=== PATIENT | male | born 1960 | race Caucasian/White ===

== ENCOUNTER → 2024-06-09 07:18 | Outpatient (REF) | payer MEDICARE, OTHER, SELFPAY | LOC: HWRAD 07:18 | PROVIDERS: ATTENDING PHYSICIAN Family Medicine | DX: R79.89 Other specified abnormal findings of blood chemistry (principal) | CPT/HCPCS: 76700 ==

== ENCOUNTER 2024-12-22 09:47 | Outpatient (RCR) | payer MEDICARE, OTHER, SELFPAY | END 2024-12-22 23:59 | disposition home or self-care (01) | LOC: RPT 09:47 | PROVIDERS: ATTENDING PHYSICIAN Physician Assistant; FAMILY PHYSICIAN Family Medicine | DX: M19.012 Primary osteoarthritis, left shoulder (principal); Z73.6 Limitation of activities due to disability | CPT/HCPCS: 97010; 97110; 97140; 97162 ==

== ENCOUNTER 2025-01-12 09:43 | Outpatient (RCR) | payer MEDICARE, OTHER, SELFPAY | END 2025-01-12 13:13 | disposition home or self-care (01) | LOC: RPT 09:43 | PROVIDERS: ATTENDING PHYSICIAN Physician Assistant; FAMILY PHYSICIAN Family Medicine | DX: M19.012 Primary osteoarthritis, left shoulder (principal); Z73.6 Limitation of activities due to disability | CPT/HCPCS: 97010; 97110; 97140 ==

== ENCOUNTER → 2025-01-21 08:43 | Outpatient (REF) | payer MEDICARE, OTHER, SELFPAY | LOC: RAD 08:43 | PROVIDERS: ATTENDING PHYSICIAN Nurse Practitioner; FAMILY PHYSICIAN Family Medicine | DX: M54.32 Sciatica, left side (principal) | CPT/HCPCS: 72110 ==

== ENCOUNTER 2025-02-21 12:49 | Outpatient (RCR) | payer MEDICARE, OTHER, SELFPAY | END 2025-02-21 23:59 | disposition home or self-care (01) | LOC: RPT 12:49 | PROVIDERS: ATTENDING PHYSICIAN Family Medicine | DX: M54.32 Sciatica, left side (principal); Z73.6 Limitation of activities due to disability; M79.605 Pain in left leg; M62.81 Muscle weakness (generalized) | CPT/HCPCS: 97010; 97110; 97140; 97162 ==

== ENCOUNTER → 2025-03-09 09:59 | Outpatient (REF) | payer MEDICARE, OTHER, SELFPAY | LOC: PAVMRI 09:59 | PROVIDERS: ATTENDING PHYSICIAN Surgery; FAMILY PHYSICIAN Family Medicine | DX: R97.20 Elevated prostate specific antigen [PSA] (principal) | CPT/HCPCS: 72197; A9575 ==

== ENCOUNTER 2025-03-21 13:54 | Outpatient (RCR) | payer MEDICARE, OTHER, SELFPAY | END 2025-03-21 23:59 | disposition home or self-care (01) | LOC: RPT 13:54 | PROVIDERS: ATTENDING PHYSICIAN Family Medicine | DX: M54.32 Sciatica, left side (principal); M79.605 Pain in left leg; M62.81 Muscle weakness (generalized); Z73.6 Limitation of activities due to disability | CPT/HCPCS: 97010; 97110; 97140 ==

== ENCOUNTER → 2025-03-29 11:48 | Outpatient (REF) | payer MEDICARE, OTHER, SELFPAY | LOC: CLAB 11:48 | PROVIDERS: ATTENDING PHYSICIAN Surgery | DX: R97.20 Elevated prostate specific antigen [PSA] (principal) | CPT/HCPCS: 88305 ==

== ENCOUNTER 2025-04-15 13:48 | Outpatient (RCR) | payer MEDICARE, OTHER, SELFPAY | END 2025-04-15 23:59 | disposition home or self-care (01) | LOC: RPT 13:48 | PROVIDERS: ATTENDING PHYSICIAN Family Medicine | DX: M54.32 Sciatica, left side (principal); M79.605 Pain in left leg; M62.81 Muscle weakness (generalized); Z73.6 Limitation of activities due to disability | CPT/HCPCS: 97010; 97110; 97140 ==

== ENCOUNTER → 2025-06-08 07:33 | Outpatient (REF) | payer MEDICARE, OTHER, SELFPAY | LOC: MRI 07:33 | PROVIDERS: ATTENDING PHYSICIAN Internal Medicine Gastroenterology; FAMILY PHYSICIAN Family Medicine | DX: K76.0 Fatty (change of) liver, not elsewhere classified (principal); R16.1 Splenomegaly, not elsewhere classified | CPT/HCPCS: 74183; 76391; A9575 ==

== ENCOUNTER 2025-07-20 09:58 | Outpatient (RCR) | payer MEDICARE, OTHER, SELFPAY | END 2025-07-20 23:59 | disposition home or self-care (01) | LOC: RPT 09:58 | PROVIDERS: ATTENDING PHYSICIAN Orthopaedic Surgery; FAMILY PHYSICIAN Family Medicine | DX: M25.551 Pain in right hip (principal); M47.816 Spondylosis without myelopathy or radiculopathy, lumbar region; M76.899 Other specified enthesopathies of unspecified lower limb, excluding foot; Z73.6 Limitation of activities due to disability; Z96.641 Presence of right artificial hip joint | CPT/HCPCS: 97010; 97110; 97140; 97162 ==

== ENCOUNTER 2025-08-08 09:54 | Outpatient (RCR) | payer MEDICARE, OTHER, SELFPAY | END 2025-08-08 23:59 | disposition home or self-care (01) | LOC: RPT 09:54 | PROVIDERS: ATTENDING PHYSICIAN Orthopaedic Surgery; FAMILY PHYSICIAN Family Medicine | DX: M25.551 Pain in right hip (principal); M47.816 Spondylosis without myelopathy or radiculopathy, lumbar region; M76.899 Other specified enthesopathies of unspecified lower limb, excluding foot; Z73.6 Limitation of activities due to disability; Z96.641 Presence of right artificial hip joint | CPT/HCPCS: 97010; 97110; 97140 ==